=== PATIENT | male | born 1985 ===

== ENCOUNTER → 2023-05-16 11:25 | Outpatient (REF) | payer OTHER, SELFPAY | LOC: RAD 11:25 | PROVIDERS: ATTENDING PHYSICIAN Anesthesiology | DX: M54.50 Low back pain, unspecified (principal); M54.17 Radiculopathy, lumbosacral region | CPT/HCPCS: 70030 ==

== ENCOUNTER 2024-07-28 15:18 | Emergency (ER) | payer OTHER, SELFPAY ==
[2024-07-28 15:20] VITALS: BP 112/80
--- NOTE | 2024-07-28 17:23 | ED.GENMED ---
History of Present Illness
General
Chief Complaint: Musculo-Skeletal Complaint
Source: patient
Exam Limitations: none
Time Seen by Provider: 07/28/24 17:07
History of Present Illness
History of Present Illness:
39yoM with no significant past medical history presenting with his significant other for evaluation of back and hip pain. Patient has a history of ongoing back problems for many years. He was previously seeing pain management and has received
steroid injections in the past. Patient reports pain in his right lower back and right hip for the past 3 days. He denies any trauma or inciting incident. Pain radiates down the right leg. Pain is worse with movement and weight bearing. He has
had similar episodes in the past although does not typically have pain in the hip joint. He typically receives steroids and gets better. He denies any paresthesias, incontinence, testicular pain, abdominal pain, fevers.
Phy Exam
General Physical Exam
General Presentation: well appearing and no apparent distress
General Skin: warm and dry
General Habitus: normal
General Mental: alert
ENT Exam
ENT Exam: normocephalic
Pulmonary Exam
Pulmonary Exam: no respiratory distress
Gastrointestinal Exam
Gastrointestinal Exam: non tender, soft and non distended
Neurological Exam
Neurological Exam: alert
Benson Coma Scale
Eye Opening: Spontaneous
Verbal Response: Oriented
Motor Response: Obeys Commands
GCS Total Score: 15
Musculoskeletal Exam
Musculoskeletal Exam: other (+Tenderness in R lower lumbar region and hip. Hip joint normal to inspection and ROM normal. No pitting edema or skin changes in RLE. 2+ DP pulse and sensation intact.)
Skin Exam
Skin Exam: normal color and warm/dry
Psychiatric Exam
Psychiatric Exam: normal mood/affect
Course
Orders/Labs/Results
Orders:
Orders
07/28/24 17:21
Acetaminophen [Tylenol] 1,000 mg PO NOW STA
Ketorolac [Toradol] 30 mg IM NOW STA
Lidocaine [Lidocaine 4% Patch] 1 patch TOPICAL NOW STA
Apply Lidocaine patch(s) to:: R low back
CR Lumbar Spine Comp Min 4 Vw* Urgent
Comment:
Reason For Exam: low back pain
Hip, Right 2-3 Views [CR Hip - RT w/wo Pel 2-3 Vw*] Urgent
Comment:
Reason For Exam: pain
Include a pelvis x-ray?: Yes
Vital Signs
Initial and Last Documented VS:
Initial Vital Signs
Temp Pulse Resp BP Pulse Ox
97.9 F 51 16 112/80 99
07/28/24 15:20 07/28/24 15:20 07/28/24 15:20 07/28/24 15:20 07/28/24 15:20
Last Documented Vital Signs
Temp Pulse Resp BP Pulse Ox
97.9 F 51 16 112/80 99
07/28/24 15:20 07/28/24 15:20 07/28/24 15:20 07/28/24 15:20 07/28/24 17:25
MDM/Problems Addressed
Differential Diagnosis Includes:
39yoM here with atraumatic R lower back/hip pain radiating down R leg x 3 days. Hx of similar pains in the past. No red flags in history including no fevers, saddle anesthesia, incontinence. Hip ROM is normal and RLE is neurovascularly intact.
Differential diagnosis includes: muscular strain, sciatica, lumbar radiculopathy, less likely fracture
X-rays of lumbar spine and hip obtained which appear normal per my interpretation. He was given IM Toradol, Tylenol, and lidocaine patch with improvement. Prescriptions provided for prednisone and Flexeril. He was advised to f/u with his pain
management doctor and orthopedics. He was discharged in stable condition.
*Pulse Oximetry
SaO2: 99
Oxygen Mode of Delivery: Room air
*Critical Care Note
Total Time (30-74mins, 75-104mins- exclusive of procedures): Not Applicable
ED Attending Note
-
Portions of this chart may have been created with voice recognition software.� Occasional wrong word or��sound alike� substitutions may have occurred due to the inherent limitations of voice recognition software.
Discharge Plan
Departure
Patient Disposition: Home (Routine Discharge)
Date of Disposition: 07/28/24
Time of Disposition: 19:07
Patient with high blood pressure during this ER visit?: No
Discharge Problem:
Low back pain radiating to right lower extremity
Instructions: Back Pain
Prescriptions:
New
prednisone 50 mg tablet
50 mg PO DAILY Qty: 5 0RF
cyclobenzaprine 10 mg tablet
10 mg PO Q8H PRN (Reason: muscle spasms) Qty: 20 0RF
Referrals:
NONE,* [Family Provider, Internal Medicine]
Jamaal Peña MD [Active, Orthopedics]
Activity Restrictions/Additional Instructions:
Take prednisone as prescribed. Use lidocaine patches daily (12 hours on, 12 hours off). You may also take Tylenol as needed. Take Flexeril as needed for muscle spasms.
Please follow-up with your pain management doctor and orthopedics. Return to the ER with any new or worsening symptoms.
Interventions
Interventions:
*Risk Screen - Suicide Last Done: 07/28/24 16:34
*General Assessment Last Done: 07/28/24 16:34
*Neglect/Abuse Screening Last Done: 07/28/24 16:34
*ED- Fall Risk Assessment Last Done: 07/28/24 16:35
*Nursing Disposition Last Done: 07/28/24 19:21
ED-Musculoskeletal Assessment Last Done: 07/28/24 16:34
Discharge Date and Time
Discharge Date/Time: 07/28/24 19:22
Print Language: PUERTO RICAN
[2024-07-28] MEDS: LIDOCAINE 4% PATCH 1 PATCH TOPICAL (17:30)
[2024-07-28] MEDS: TYLENOL 1000 MG PO (17:30)
[2024-07-28] MEDS: TORADOL 30 MG IM (17:30)
== END 2024-07-28 19:22 | disposition home or self-care (01) ==
LOC: EMR 15:18
PROVIDERS: EMERGENCY PHYSICIAN Emergency Medicine
DX: M54.50 Low back pain, unspecified (principal); M25.551 Pain in right hip
CPT/HCPCS: 96372; 99283; 72110; 73502